=== PATIENT | male | born 1940 | race Caucasian/White ===

== ENCOUNTER 2016-09-06 18:29 | Emergency (ER) | payer MEDICARE ==
[~2016-09-06] VITALS: Ht 172.7 cm; Wt 76.4 kg
[2016-09-06 18:33] VITALS: BP 169/103; PULSE 89; RESP 20; O2SAT 97
[2016-09-06 19:07] VITALS: BP 177/113; PULSE 86; RESP 24; O2SAT 96
--- NOTE | 2016-09-06 19:20 | ED.REPORT ---
HPI-Chest Pain 40 and Over Date of Service Sep 06, 2016 ED Provider: History of Present Illness: 75-year-old male here for epigastric burning pain and uncontrollable nausea since 11 AM. Chills but no known fever. He had a hard BM this morning. His history of obstipation and chronic constipation related to chronic opiates he takes for his pulmonary fibrosis. Does not have gallbladder. He has had similar symptoms to this but this is much more severe and it has not gone away like it has previously. He tried Zofran but he still nauseous. He is more short of breath than usual. No cough. After he had been vomiting a while he started to feel some throat tightness and irritation and pain with swallowing. Nursing Notes Stated Complaint: CHEST PAIN/VOMITING/CHILLS Chief Complaint: Chest Pain Nursing Notes Reviewed: Yes Allergies: Coded Allergies: penicillin G (Verified Allergy, Severe, anaphalaxis, 09/06/16) Scheduled Omeprazole (Omeprazole) 20 Mg Tablet.dr 20 MG PO BID General Time Seen by MD: 19:07 Chief Complaint Chest pain, Nausea, Shortness of breath, Vomiting Hx Obtained From: Patient, Spouse Arrived By: Walk-in Sudden in Onset?: Yes Onset Occurred: 5 - 8 hours ago Symptom Duration: Constant Location: : Epigastric Quality: Burning Severity: Current: Severe Severity: Maximum: Severe Recent Healthcare: Recent doctor visit Similar Sx Previous: Yes Past Medical History Past Medical History Notes: pulmonary fibrosis diabetes Review of Systems Constitutional: Reports: Chills, Fatigue, Denies: Fever Respiratory: Reports: Dyspnea on exertion, Denies: Non-productive cough Cardiovascular: Reports: Chest pain GI: Reports: Abdominal pain, Constipation, Nausea, Vomiting, Denies: Diarrhea Complete sys rev & neg: except as marked. Physical Exam Initial Vital Signs Vital Signs (First) Date Time Temp Pulse Resp B/P Pulse Ox O2 Delivery O2 Flow Rate FiO2 09/06/16 18:33 36.0 89 20 169/103 97 Nasal Cannula 3 Initial VS: Reviewed, Vital signs normal General/Constitutional: Awake, Alert, No acute distress, Well appearing Respiratory / Chest: Breath sounds NL, Breath sounds = bilat, No respiratory distress, No rales, No rhonchi, No wheezing, No stridor, No chest tenderness Cardiovascular: Heart rate NL, Regular rhythm, Heart sounds NL, No murmurs, Peripheral circulation NL, Pulses = bilaterally, No gross BP differential Abdomen: Atraumatic Tenderness/Guarding/Rebound: Positive: Tender LUQ... (Severe), Tender RUQ... ( Severe), Tender epigastric Skin: Color NL, Warm, Dry, Turgor NL Interpretation & Diagnostics Interpretation & Diagnostics: IMPRESSION: 1. Large nonobstructing right renal stone measuring up to 2.3 cm. No hydronephrosis. 2. Mild concentric wall thickening of the distal esophagus suggesting a mild esophagitis possibly related to reflux. There is a small to moderate-sized hiatal hernia. 3. Fibrotic changes demonstrated in the lung bases as well as scarring and paraseptal emphysematous changes. Lab Results Interpretation Result Diagram: 09/06/16 1911 09/06/16 2020 Test 09/06/16 19:11 09/06/16 20:20 09/06/16 22:38 White Blood Count 10.5th/mm3 (3.8-10.1) Red Blood Count 5.57mil/mm3 (4.40-5.80) Hemoglobin 19.0g/dL (13.8-17.2) Hematocrit 56.5% (41.0-50.0) Mean Corpuscular Volume 101.4fL (81-100) Mean Corpuscular Hemoglobin 34.1pg (27.0-35.0) Mean Corpuscular Hemoglobin Concent 33.6% (32.0-37.0) Red Cell Distribution Width 15.5% (12.3-15.4) Platelet Count 207bil/L (150-400) Neutrophils (%) (Auto) 87.0% (40-74) Lymphocytes (%) (Auto) 7.8% (14-46) Monocytes (%) (Auto) 4.6% (4-12) Eosinophils (%) (Auto) 0.2% (0-5) Basophils (%) (Auto) 0.2% (0-3) Hold Marin Top Tube Received (Received) Sodium Level 137mEq/L (134-144) Potassium Level 3.9mEq/L (3.5-5.2) Chloride Level 96mEq/L (97-108) Carbon Dioxide Level 21mmol/L (18-29) Blood Urea Nitrogen 30mg/dL (8-27) Creatinine 0.84mg/dL (0.76-1.27) Estimat Glomerular Filtration Rate 95mL/min (>59) Glucose Level 161mg/dL (60-99) Calcium Level 9.6mg/dL (8.5-10.1) Magnesium Level 2.0mg/dL (1.6-2.6) Total Bilirubin 1.6mg/dL (0.0-1.2) Aspartate Amino Transf (AST/SGOT) 39U/L (0-50) Alanine Aminotransferase (ALT/SGPT) 46U/L (0-44) Alkaline Phosphatase 66U/L (25-160) Troponin T < 0.010ug/L (0.0-0.011) Total Protein 7.5g/dL (6.4-8.4) Albumin 4.2g/dL (3.4-5.0) Amylase Level 45U/L (28-100) Lipase 48U/L (13-60) X-Ray Interpretation Xray Interpretation: IMPRESSION: 1. Bilateral reticular interstitial opacities suggestive of fibrotic changes. Further evaluation may be obtained with high-resolution CT if clinically indicated. Re-Eval/Medical Decision Med Decision/Clinical Course pt improved after pain/nausea meds. abd nontender. given a few ice chips. Patient has history of acid reflux is on ranitidine E now has been on omeprazole. We will give him Protonix here in the ER and discharged home with omeprazole. Discussed large kidney stone he has, he is asymptomatic at this time. He will follow up if his symptoms worsen Discharge & Departure Shift Change Sign-Out Laboratory Evaluation: Lab evaluation discussed Imaging Studies: Imaging discussed Procedures: Results discussed Primary Impression: Esophagitis Additional Impressions: Nausea & vomiting Vomiting type: unspecified Vomiting Intractability: unspecified Qualified Code: R11.2 - Nausea with vomiting, unspecified Pulmonary fibrosis Disposition: Home Discharge Condition All VS Reviewed: Yes Condition: Stable Patient Instructions: Esophagitis (ED) Additional Instructions: Take omeprazole twice a day for pain. Light diet as discussed avoiding spicy foods, fatty foods, alcohol. Return if severe abdominal or chest pain. Return if severe vomiting. Genitourinary symptoms as well. There were noted to have a large kidney stone is at this time asymptomatic follow-up with your PCP regarding this. Follow up with PCP regarding esophagitis as well, preferably in the next week. Referrals: NOPCP (PCP) EDSupervising Provider for APC: Scott Gonzalez Linnea K ARNP Sep 06, 2016 19:20
[2016-09-06 19:45] LABS: BASOPHILS % (AUTO) 0.2 % (0-3); EOSINOPHILS % (AUTO) 0.2 % (0-5); MONOCYTES % (AUTO) 4.6 % (4-12); Mean Corpuscular Hemoglobin 34.1 pg (27.0-35.0); Mean Corpuscular Volume 101.4 fL (81-100); Platelet Count 207 bil/L (150-400)
[2016-09-06] MEDS ORDERED: Ondansetron 2 mg/mL 2 mL Inj IVPUSH ONE (20:10)
[2016-09-06] MEDS ORDERED: HYDROmorphone 1 mg/mL Inj IVPUSH ONE (20:10)
[2016-09-06 20:57] LABS: TROPONIN T < 0.010 ug/L (0.0-0.011)
--- NOTE | 2016-09-06 21:00 | DRSVH ---
PROCEDURE: X-RAY CHEST ONE VIEW, PORTABLE ([id number]) INDICATIONS: chest pain TECHNIQUE: One view of the chest was acquired. COMPARISON: None. FINDINGS: Surgical changes and devices: None. Lungs and pleura: No pleural effusions or pneumothorax. There are bilateral reticular interstitial opacities in the lungs with a peripheral predominance. Mediastinum: Mediastinal contours appear normal. Heart size is normal. Bones and chest wall: No suspicious bony lesions. Overlying soft tissues appear unremarkable. IMPRESSION: 1. Bilateral reticular interstitial opacities suggestive of fibrotic changes. Further evaluation ma y be obtained with high-resolution CT if clinically indicated. Dictated by: Isra Cavanaugh M.D. on 09/06/2016 at 20:58 Approved by: Isra Cavanaugh M.D. on 09/06/2016 at 20:58
[2016-09-06 21:44] LABS: Lipase 48 U/L (13-60)
[2016-09-06 21:52] VITALS: BP 108/70; PULSE 96; RESP 21; O2SAT 94
--- NOTE | 2016-09-06 22:21 | DRSVH ---
PROCEDURE: CT ABDOMEN AND PELVIS WITH CONTRAST ([id number]) INDICATIONS: Epigastric abdominal pain. TECHNIQUE: After the administration of oral and intravenous contrast, 5 mm thick sections acquired from the diap hragms to the symphysis. 5 mm thick coronal and sagittal reformats were performed. For radiation do se reduction, the following was used: automated exposure control, adjustment of mA and/or kV accordi ng to patient size. COMPARISON: None. FINDINGS: Image quality: There is streak artifact from patient's left hip surgical hardware. ABDOMEN: Lung bases: There are fibrotic changes and scarring in the lung bases as well as paraseptal emphysem atous changes. Heart size is normal. There is mild concentric wall thickening of the visualized dis chapito esophagus. A small to moderate-sized hiatal hernia is Solid organs: There are multiple cysts demonstrated within the liver. The spleen is normal size. G allbladder is surgically absent. Biliary system is non-dilated. Pancreas enhances normally. No adr enal nodules. Within the lower pole of the right kidney, there are 2 nonobstructing renal stones wit h a larger stone measuring up to 2.3 cm. This demonstrates attenuation values of approximately 1500 Hounsfield units. There is no hydronephrosis. There are a few scattered bilateral small round hypod ense foci within the kidneys which are too small to characterize but likely represent cysts. Peritoneum and bowel: Stomach, small bowel, and colon loops are normal in caliber and wall thickness . The appendix is normal in appearance. There is colonic diverticulosis without acute diverticuliti s. No free fluid or air. Nodes and vessels: No retroperitoneal or mesenteric adenopathy. Aorta and inferior vena cava are no rmal in caliber. Miscellaneous: No ventral hernias. PELVIS: Genitourinary: Bladder wall thickness is normal. Miscellaneous: No inguinal hernias or adenopathy. Bones: No suspicious bony lesions. There is a fixation christopher within the proximal left femur with a te lescoping screw through the left femoral neck associated with an old proximal left femoral fracture. No vertebral body compression fractures. There is grade 2 anterolisthesis at L5-S1 with a relatively nondisplaced left pars defect. Moderate facet arthropathy is present in the lower lumbar spine. IMPRESSION: 1. Large nonobstructing right renal stone measuring up to 2.3 cm. No hydronephrosis. 2. Mild concentric wall thickening of the distal esophagus suggesting a mild esophagitis possibly re lated to reflux. There is a small to moderate-sized hiatal hernia. 3. Fibrotic changes demonstrated in the lung bases as well as scarring and paraseptal emphysematous changes. Dictated by: Isra Cavanaugh M.D. on 09/06/2016 at 22:11 Approved by: Isra Cavanaugh M.D. on 09/06/2016 at 22:20
[2016-09-06] MEDS ORDERED: Pantoprazole 4 mg/mL 10 mL Inj IVPUSH ONE (22:35)
[2016-09-06] MEDS ORDERED: 0.9% Sodium Chloride 1,000 ML IV ONE (22:35)
[2016-09-06] MEDS ORDERED: OMEP20TA86 PO (22:37)
[2016-09-06 23:04] VITALS: BP 136/91; PULSE 94; RESP 20; O2SAT 91
== END 2016-09-06 23:05 | disposition home or self-care (01) ==
LOC: SED 18:29
DX: K20.9 Esophagitis, unspecified (principal); J84.10 Pulmonary fibrosis, unspecified; K59.03 Drug induced constipation; E11.9 Type 2 diabetes mellitus without complications; K21.9 Gastro-esophageal reflux disease without esophagitis; N20.0 Calculus of kidney; Z88.0 Allergy status to penicillin
CPT/HCPCS: 36415; 71010; 74177; 80053; 82150; 83690; 83735; 84484; 85025; 93005; 96361; 96374; 96375; 99285; J1170; J2405; J7030; Q9967